=== PATIENT | male | born 1970 | race Caucasian/White ===

== ENCOUNTER → 2017-06-09 | Outpatient (CLI) | payer BC ==
--- NOTE | 2017-06-10 08:57 | MRI ---
MRI left knee without contrast Indication: Knee pain after twisting injury Comparison: None Technique: Multiplanar, multi sequence MR images of the left knee were obtained without contrast. The re is diffuse high-grade chondrosis of the medial femorotibial compartment, especially along the weig ht-bearing surfaces, associated with subchondral edema of the medial femoral condyle and to a lesser extent tibial plateau. There is full-thickness radial tear involving the medial meniscal body, as wel l as horizontal tear of the posterior horn. There is mild diffuse chondrosis of the lateral femorotib ial compartment, without full-thickness chondral defect or subchondral marrow signal abnormality. No lateral meniscal tear. Mild to moderate diffuse patellofemoral chondrosis, without full-thickness def ect. There is irregularity and laxity of the proximal PCL, suggestive for at least partial tear, likely hi gh-grade. The ACL is grossly intact. The MCL, major lateral stabilizers, and extensor mechanism are i ntact. There is a small amount of fluid within the joint space. No popliteal cyst. There is diffuse s ubcutaneous edema about the knee, without discrete collection. Impression: 1. Findings suggesting high-grade PCL injury. Correlation with exam is recommended. The ACL is intact . 2. 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 3. Complex tear of the medial meniscus with full-thickness radial component involving the meniscal richar dy and a horizontal tear of the posterior horn. Reported By:
== END | disposition home or self-care (01) | DRG 556 ==
LOC: RAD 12:53
PROVIDERS: ATTEND Physician Assistant Medical
DX: M25.562 Pain in left knee (principal); M17.12 Unilateral primary osteoarthritis, left knee; S83.242A Other tear of medial meniscus, current injury, left knee, initial encounter; X58.XXXA Exposure to other specified factors, initial encounter
CPT/HCPCS: 73721

== ENCOUNTER → 2017-08-04 | Outpatient (CLI) | payer BC ==
--- NOTE | 2017-08-09 11:53 | MRI ---
HISTORY: RIGHT KNEE PAIN AND RIGHT KNEE INJURY. EXAM: NON CONTRAST MRI EXAM OF THE RIGHT KNEE. TECHNIQUE: Multisequence and multiplanar T1 and T2 weighted sequences of the right knee were obtained without the administration of IV paramagnetic contrast at 1.5 Livia. COMPARISON: No recent priors. FINDINGS: There is moderate lateral patellar tracking without evidence for recent patellar dislocation. The fem oral trochlea is somewhat shallow/oblique in nature. There is a moderate-sized knee joint effusion. T he ACL is intact. There is a grade 2/3 injury/tear of the PCL which may be chronic in nature. The lat eral meniscus is unremarkable in appearance. There is a near full-thickness vertical tear of the medi al meniscal root which is best seen on images number 23 through 27 of series 701 with moderate medial meniscal extrusion also observed. The collateral ligaments are intact. No acute posterior lateral co rner injury is seen. There is no significant femorotibial chondromalacia observed. No acute or stress fracture is seen. There is diffuse prepatellar edema. There is proximal patellar tendinosis. There i s distal quadriceps peritendinitis. Periarticular and prepatellar edema is seen. No other knee joint injuries or musculoskeletal abnormality is observed on this examination. No other abnormality is seen . IMPRESSION: Grade 2/3 PCL injury/tear which may be subacute or chronic in nature. Full-thickness/vertical tear of the medial meniscal root with mild associated medial meniscal extrusi on which can be best evaluated arthroscopically. Moderate lateral patellar tracking without evidence for patellar dislocation. Moderate-sized knee joint effusion. No other significant injuries seen. Reported By:
== END | disposition home or self-care (01) ==
LOC: RAD 15:35
PROVIDERS: ATTEND Physician Assistant Medical
DX: M25.561 Pain in right knee (principal); S83.521A Sprain of posterior cruciate ligament of right knee, initial encounter; S83.241A Other tear of medial meniscus, current injury, right knee, initial encounter; X58.XXXA Exposure to other specified factors, initial encounter; M25.461 Effusion, right knee
CPT/HCPCS: 73721